=== PATIENT | male | born 1990 | race Caucasian/White ===

== ENCOUNTER 2020-02-08 07:15 | Day surgery (SDC) | payer OTHER ==
[~2020-02-08] VITALS: Ht 185.4 cm; Wt 131.5 kg
[2020-02-08 09:33] VITALS: BP 155/84
[2020-02-08 13:56] VITALS: BP 133/79
== END 2020-02-08 14:25 | disposition home or self-care (01) ==
LOC: GI 07:15 → OR 13:00 → GI 14:25
PROVIDERS: ATTEND Internal Medicine Gastroenterology
DX: D50.9 Iron deficiency anemia, unspecified (principal); K64.8 Other hemorrhoids; K44.9 Diaphragmatic hernia without obstruction or gangrene; K21.00 Gastro-esophageal reflux disease with esophagitis, without bleeding
CPT/HCPCS: 43235; 45378; J1200; J1610; J2250; J2310; J3010; J3490

== ENCOUNTER 2020-02-29 07:05 | Day surgery (SDC) | payer OTHER ==
[~2020-02-29] VITALS: Ht 185.4 cm; Wt 135.2 kg
[2020-02-29 07:40] VITALS: BP 142/77
[2020-02-29 12:27] VITALS: BP 141/75
== END 2020-02-29 13:00 | disposition home or self-care (01) ==
LOC: GI 07:05 → OR 11:00 → GI 11:00
PROVIDERS: ATTEND Internal Medicine Gastroenterology
DX: D50.9 Iron deficiency anemia, unspecified (principal); K57.30 Diverticulosis of large intestine without perforation or abscess without bleeding; E66.9 Obesity, unspecified; Z68.39 Body mass index [BMI] 39.0-39.9, adult; Z79.82 Long term (current) use of aspirin
CPT/HCPCS: 45378; J1200; J1610; J2250; J2310; J3010; J3490

== ENCOUNTER 2020-04-25 07:52 | Day surgery (SDC) | payer OTHER ==
[~2020-04-25] VITALS: Ht 185.4 cm; Wt 131.5 kg
[2020-04-25 08:49] VITALS: BP 145/92
[2020-04-25 16:21] VITALS: BP 133/89
== END 2020-04-25 16:56 ==
LOC: GI 07:52 → OR 09:00 → GI 10:00
PROVIDERS: ATTEND Internal Medicine Gastroenterology
DX: D50.9 Iron deficiency anemia, unspecified (principal); K57.30 Diverticulosis of large intestine without perforation or abscess without bleeding
CPT/HCPCS: 45378; J1200; J1610; J2250; J2310; J3010; J3490